=== PATIENT | male | born 1990 | race Two or more races ===

== ENCOUNTER 2018-07-10 20:53 | Emergency (ER) | payer OTHER ==
[~2018-07-10] VITALS: Ht 175.3 cm; Wt 115.3 kg
[2018-07-10] MEDS ORDERED: LISI-167 PO (21:14)
[2018-07-10] MEDS ORDERED: INSU100V8 SQ (21:15)
[2018-07-10] MEDS ORDERED: LINA5TAB PO (21:16)
--- NOTE | 2018-07-10 21:18 | NUR ---
first contact with pt. pt c/o left testicle numbness from today. pt states "I have left testicle pain 2 days ago but it is numbness now." pt denies n/v/d/fever/dysuria/any discharge from penis and abd pain at this time. bp and spo2 monitors in place. edmd at bedside and explaining plan of care. call light within reach.
--- NOTE | 2018-07-10 21:20 | NUR ---
pt amb to br with steady gait for ua.
--- NOTE | 2018-07-10 21:30 | NUR ---
BG 498 AT THIS TIME.
[2018-07-10 21:36] LABS: MICROSCOPIC NOT IND
--- NOTE | 2018-07-10 21:36 | NUR ---
BG 498, EDMD VIKTORIA NOTIFIED.
[2018-07-10 21:48] LABS: CULTURE INDICATED? NO
[2018-07-10 21:50] LABS: BASOPHILS # (AUTO) 0.06 x10^3/uL (0-0.1); BASOPHILS % (AUTO) 1 % (0-1); EOSINOPHILS % (AUTO) 1 % (1-7); LYMPHOCYTES # (AUTO) 2.42 x10^3/uL (1-3.4); LYMPHOCYTES % (AUTO) 29 % (22-44); MD NO; MEAN CORPUSCULAR HEMOGLOBIN 30.8 pg (27.5-34.5); MEAN CORPUSCULAR HGB CONC 35.1 g/dL (33.2-36.2); MEAN CORPUSCULAR VOLUME 87.8 fL (81-97); MEAN PLATELET VOLUME 9.4 fL (7.4-10.4); MONOCYTES # (AUTO) 0.58 x10^3/uL (0.2-0.8); MONOCYTES % (AUTO) 7 % (2-9); NEUTROPHILS # (AUTO) 5.34 x10^3/uL (1.8-6.8); NEUTROPHILS % (AUTO) 63 % (42-75); PLATELET COUNT 286 x10^3/uL (130-400); RED BLOOD COUNT 5.61 x10^6/uL (4.38-5.82)
--- NOTE | 2018-07-10 22:03 | NUR ---
PT IN US AT THIS TIME.
--- NOTE | 2018-07-10 22:14 | NUR ---
PT BACK TO ROOM. PT RESTING IN [facility]. BP AND SPO2 MONITORS IN PLACE. CALL LIGHT WITHIN RECH. AWAITING LAB RESULTS AT THIS TIME.
--- NOTE | 2018-07-10 22:37 | NUR ---
RN notified by lab that pt needs to be redrawn due to hemolyzed sample. pt has not been redrawn yet, lab paged to draw pt.
--- NOTE | 2018-07-10 22:40 | NUR ---
lab at bedside for redraw
--- NOTE | 2018-07-10 22:53 | NUR ---
PT AMB TO BR WITH STEADY GAIT. PT PROVIDED PILLOW AND WATER AT THIS TIME. PT AOX4. RESPS EVEN AND UNLABORED. PT RESTING IN GURNEY. PT'S AT BEDSIDE. BP AND SPO2 MONITORS IN PLACE. CALL LIGHT WITHIN REACH.
[2018-07-10 22:59] LABS: ALBUMIN 3.2 g/dL (3.4-5.0); ANION GAP 8 mmol/L (5-15); CALCIUM 7.7 mg/dL (8.5-10.1); CHLORIDE 102 mmol/L (98-107); CREATININE 0.98 mg/dL (0.7-1.3)
[2018-07-10 23:10] VITALS: BP 142/89
--- NOTE | 2018-07-10 23:11 | NUR ---
Pt awake, alert and oriented. resps even and unlabored. pt denies pain. all monitors in place, pt is sinus tach rate 110s with no ectopy on monitoring manager. Pt states "I always have a high heart rate, I don't know why." EDMD Saul aware. EDMD at bedside to update pt with lab/imaging results.
--- NOTE | 2018-07-10 23:42 | NUR ---
PT GIVEN DC INSTRUCTIONS. PT A&O, RESPS EVEN AND UNLABORED. PT INSTRUCTED BY MD BLUM TO TREAT HYPERGLYCEMIA AT HOME WITH REGULAR DOSE NIGHT TIME INSULIN PRESCRIBED BY PT'S PCP. PT STATES "I HAD ALGERIAN FOOD AND CHEESECAKE EARLIER TODAY." PT HAS NO COMPLAINT AT DC. NO N/V. PT AMB TO DC WITH STEADY GAIT, ACCOMPANIED BY .
== END 2018-07-10 23:39 | disposition home or self-care (01) ==
LOC: ED 21:47
DX: I86.1 Scrotal varices (principal); E10.65 Type 1 diabetes mellitus with hyperglycemia; I10 Essential (primary) hypertension
CPT/HCPCS: 36415; 76870; 80048; 81003; 82040; 82962; 85025; 93975; 99284

== ENCOUNTER 2019-07-15 00:59 | Emergency (ER) | payer OTHER ==
[~2019-07-15] VITALS: Ht 175.3 cm; Wt 108.5 kg
[~2019-07-15 00:59] MED LIST: INSU100V8 SQ; LINA5TAB PO; LISI-167 PO
[2019-07-15 01:02] VITALS: BP 193/110
--- NOTE | 2019-07-15 01:33 | NUR ---
THIS IS A 29 YO MALE COMING IN FOR INCREASE ANXIETY, WITH SI THOUGHTS STARTING TODAY. PATIENT STATES "TODAY I WOKE UP AND I HAD THESE LIKE WHAT IFS THOUGHTS, LIKE THAT IF I JUST WASN'T HERE?" PATIENT DENIES ANY PLAN IN PLACE. PT WAS SEEN AT [facility] 3 WEEKS AGO FOR AN ACUTE ANIETY ATTACK, PATIENT STATES "I WAS DRINKING AND MARCUS BLACKED OUT AND I WAS TOLD THAT I WAS KIND OF AGGRESSIVE TO THE MEDICS, AND A PSYCH NURSE TOLD ME I WAS HAVING AN ANXIETY ATTACK". PATIENT STATES HE WAS NOT GIVEN ANY MEDICATION WITH DISCHARGE, OR PSYCH CONSULT. ONLY MEDICAL HX IS T2DM AND HTN, HAS BEEN OFF HIS MEDICATIONS FOR ABOUT 3 WEEKS NOW, PATIENT STATES "I JUST DON'T REALLY CARE ANYMORE". WAS SUPPOSED TO BE TAKING LANTUS AND TRAGENTA FOR DM AND LISINOPRIL FOR HTN. BELONGINGS PLACED IN BELONGINGS BAG AND PUT IN LOCKED STORAGE. NEEDS ADDRESSED, CALL LIGHT IN REACH. EXCESS CHAIRS TAKEN OUT OF ROOM.
[2019-07-15] MEDS ORDERED: LORazepam 1MG TABLET ONE (01:44)
[2019-07-15] MEDS ORDERED: LORazepam 1MG TABLET PO ONE (02:00)
--- NOTE | 2019-07-15 02:00 | NUR ---
PT MOVED TO ROOM 2, ASSUMED CARE OF PT. PT RESTING ON GURNEY, IN NO DISTRESS. ROOM SECURE. PT DENIES ANY NEEDS AT THIS TIME. AWAITING TELEPSYCH. PT REPORTS HE HAS BEEN DEPRESSED TODAY. HE DENIES ANY THOUGHTS OF HARMING HIMSELF OR WISHING HIS LIFE WOULD END, HE JUST REPORTS "THINKING WHAT IF I WASN'T HERE". HE STATES HE HAS BEEN UNDER A GREAT DEAL OF STRESS AT WORK AND HOME, GOING THROUGH A DIVORCE, HE HAS 2 CHILDREN. ALSO REPORTS HE HAS NOT BEEN SLEEPING WELL.
--- NOTE | 2019-07-15 02:58 | NUR ---
PT SLEEPING, RESPIRATIONS EVEN AND UNLABORED, AWAITING PSYCH EVALUATION AT THIS TIME. ROOM REMAINS SECURE, SITTER OUTSIDE DOOR.
[2019-07-15 03:30] LABS: AMPHETAMINE SCREEN, URINE Negative (Negative); BARBITURATE SCREEN, URINE Negative (Negative); BENZODIAZEPINE SCREEN, URINE Negative (Negative); CANNABINOID SCREEN, URINE Negative (Negative); COCAINE SCREEN, URINE Negative (Negative); METHADONE SCREEN, URINE Negative (Negative); OPIATE SCREEN, URINE Negative (Negative)
[2019-07-15 03:41] LABS: BASOPHILS # (AUTO) 0.03 x10^3/uL (0-0.1); BASOPHILS % (AUTO) 0 % (0-1); EOSINOPHILS # (AUTO) 0.05 x10^3/uL (0-0.4); EOSINOPHILS % (AUTO) 1 % (1-7); LYMPHOCYTES # (AUTO) 2.29 x10^3/uL (1-3.4); LYMPHOCYTES % (AUTO) 23 % (22-44); MD NO; MEAN CORPUSCULAR HEMOGLOBIN 29.7 pg (27.5-34.5); MEAN CORPUSCULAR HGB CONC 33.8 g/dL (33.2-36.2); MEAN PLATELET VOLUME 9.1 fL (7.4-10.4); MONOCYTES # (AUTO) 0.55 x10^3/uL (0.2-0.8); MONOCYTES % (AUTO) 6 % (2-9); NEUTROPHILS # (AUTO) 6.85 x10^3/uL (1.8-6.8); NEUTROPHILS % (AUTO) 70 % (42-75); PLATELET COUNT 265 x10^3/uL (130-400); RED BLOOD COUNT 5.48 x10^6/uL (4.38-5.82); RED CELL DISTRIBUTION WIDTH 12.8 % (9.4-14.8)
[2019-07-15 03:43] LABS: ALANINE AMINOTRANSFERASE 78 U/L (12-78); ALBUMIN 3.2 g/dL (3.4-5.0); ANION GAP 5 mmol/L (5-15); CALCIUM 8.3 mg/dL (8.5-10.1); CHLORIDE 105 mmol/L (98-107)
[2019-07-15 03:44] LABS: SALICYLATE LEVEL < 1.7 mg/dL (2.8-20.0)
[2019-07-15 03:46] LABS: ALKALINE PHOSPHATASE 86 U/L (45-117); BILIRUBIN,TOTAL 0.6 mg/dL (0.2-1.0); CREATININE 0.75 mg/dL (0.7-1.3); TOTAL PROTEIN 7.4 g/dL (6.4-8.2)
--- NOTE | 2019-07-15 04:21 | NUR ---
PT CONTINUES TO SLEEP, SITTER OUTSIDE DOOR, ROOM REMAINS SECURE. STILL AWAITING PSYCH EVALUATION
--- NOTE | 2019-07-15 05:28 | NUR ---
PT SPEAKING WITH TELEMILECH
== END 2019-07-15 07:18 | disposition home or self-care (01) ==
LOC: ED 02:04
DX: F32.9 Major depressive disorder, single episode, unspecified (principal); E11.9 Type 2 diabetes mellitus without complications; I10 Essential (primary) hypertension; F41.9 Anxiety disorder, unspecified; R45.851 Suicidal ideations
CPT/HCPCS: 36415; 80053; 80307; 85025; 99283

== ENCOUNTER 2019-10-23 02:33 | Emergency (ER) | payer OTHER ==
[~2019-10-23] VITALS: Ht 175.3 cm; Wt 110.0 kg
--- NOTE | 2019-10-23 03:03 | NUR ---
PT'S BELONGINGS X 1 BAG LOCKED IN SECURITY LOCER, ROOM SECURED, MONITORS APPLIED, SIDERAILS UP X2. URINE SAMPLE TAKEN TO LAB Addendum: 10/23/19 at 0307 by SAUD PT DENIES SI, STATED " I WASEN'T TRYING TO KILL MYSELF, I JUST TOOK THE MEDICATIONS BECAUSE I THOUGHT THEY WOULD HELP ME FEEL BETTER"
[2019-10-23 03:15] LABS: BASOPHILS # (AUTO) 0.01 x10^3/uL (0-0.1); BASOPHILS % (AUTO) 0 % (0-1); EOSINOPHILS # (AUTO) 0.05 x10^3/uL (0-0.4); EOSINOPHILS % (AUTO) 1 % (1-7); LYMPHOCYTES # (AUTO) 1.53 x10^3/uL (1-3.4); LYMPHOCYTES % (AUTO) 14 % (22-44); MD NO; MEAN CORPUSCULAR HEMOGLOBIN 30.4 pg (27.5-34.5); MEAN CORPUSCULAR HGB CONC 33.7 g/dL (33.2-36.2); MEAN CORPUSCULAR VOLUME 90.2 fL (81-97); MEAN PLATELET VOLUME 8.7 fL (7.4-10.4); MONOCYTES # (AUTO) 0.54 x10^3/uL (0.2-0.8); MONOCYTES % (AUTO) 5 % (2-9); NEUTROPHILS % (AUTO) 80 % (42-75); PLATELET COUNT 281 x10^3/uL (130-400); RED BLOOD COUNT 5.38 x10^6/uL (4.38-5.82); RED CELL DISTRIBUTION WIDTH 12.9 % (9.4-14.8)
[2019-10-23 03:22] LABS: ALANINE AMINOTRANSFERASE 53 U/L (12-78); ALBUMIN 3.1 g/dL (3.4-5.0); ANION GAP 9 mmol/L (5-15); CALCIUM 7.6 mg/dL (8.5-10.1); CHLORIDE 105 mmol/L (98-107); CREATININE 0.83 mg/dL (0.7-1.3)
[2019-10-23 03:24] LABS: AMPHETAMINE SCREEN, URINE Negative (Negative); BARBITURATE SCREEN, URINE Negative (Negative); BENZODIAZEPINE SCREEN, URINE Negative (Negative); CANNABINOID SCREEN, URINE Negative (Negative); COCAINE SCREEN, URINE Negative (Negative); METHADONE SCREEN, URINE Negative (Negative); OPIATE SCREEN, URINE Negative (Negative)
[2019-10-23] MEDS ORDERED: SODIUM CHLORIDE 0.9% 1,000ML IVBOLUS ONE (03:30)
[2019-10-23 03:33] LABS: ALKALINE PHOSPHATASE 74 U/L (45-117); BILIRUBIN,TOTAL 0.5 mg/dL (0.2-1.0); TOTAL PROTEIN 7.1 g/dL (6.4-8.2)
[2019-10-23 03:45] LABS: SALICYLATE LEVEL < 1.7 mg/dL (2.8-20.0)
--- NOTE | 2019-10-23 03:58 | NUR ---
provided pt with hospital bed. awaiting telepsych consult
--- NOTE | 2019-10-23 04:46 | NUR ---
soc on telephone, updated md on pt's status, h/x, medications, labs and vs. soc to consult with pt
[2019-10-23 04:57] VITALS: BP 138/89
--- NOTE | 2019-10-23 05:15 | NUR ---
telepsych consult in process
--- NOTE | 2019-10-23 05:36 | NUR ---
soc on telephone, stated " pt can be d/c'd", erp updated
== END 2019-10-23 06:03 | disposition home or self-care (01) ==
LOC: ED 03:07
DX: F41.1 Generalized anxiety disorder (principal); T46.4X1A Poisoning by angiotensin-converting-enzyme inhibitors, accidental (unintentional), initial encounter; I10 Essential (primary) hypertension; E11.9 Type 2 diabetes mellitus without complications; R00.0 Tachycardia, unspecified; Y92.89 Other specified places as the place of occurrence of the external cause; F32.9 Major depressive disorder, single episode, unspecified
CPT/HCPCS: 36415; 80053; 80307; 84443; 85025; 93005; 99284; J7030